=== PATIENT | female | born 2000 | race Hispanic/Latino ===

== ENCOUNTER 2022-11-27 23:39 | Emergency (ER) | payer OTHER ==
[~2022-11-27] VITALS: Ht 157.5 cm; Wt 54.4 kg
[2022-11-28 01:16] VITALS: BP 117/81
== END 2022-11-28 01:20 | disposition home or self-care (01) ==
LOC: ER 23:46
DX: S00.83XA Contusion of other part of head, initial encounter (principal); R51.9 Headache, unspecified; W22.09XA Striking against other stationary object, initial encounter; Y93.01 Activity, walking, marching and hiking; Y92.89 Other specified places as the place of occurrence of the external cause
CPT/HCPCS: 70450; 99283

== ENCOUNTER 2024-06-27 15:22 | Emergency (ER) | payer OTHER ==
[~2024-06-27] VITALS: Ht 157.5 cm; Wt 54.4 kg
[2024-06-27 15:27] VITALS: PULSE 79; RESP 18; TEMP 97.8; O2SAT 100
== END 2024-06-27 16:02 | disposition home or self-care (01) ==
LOC: ER 15:27
DX: R07.89 Other chest pain (principal); Z72.0 Tobacco use
CPT/HCPCS: 93005; 99282